=== PATIENT | male | born 1945 | race Caucasian/White ===

== ENCOUNTER → 2016-09-27 | Outpatient (CLI) | payer MEDICARE, OTHER ==
[~2016-09-27] MED LIST: AMLO-356 PO; ASPI325T4 PO; BUDE6HFA INHALATION; DULO60CA59 PO; ESOM40CA PO; IOHEXOL 100 ML ONE; ISOS30TA5 PO; MELO-110 PO; MEMA14CA PO; RANO10002 PO; ROSU40TA35 PO; SITA25TA3 PO; SOD CHLORIDE 0.9% 100 ML ONE
--- NOTE | 2016-09-27 17:22 | RADRPT ---
PROCEDURE: CT Pulmonary Angiogram. CLINICAL INDICATION: Chest pain and shortness of breath. TECHNIQUE: CT pulmonary angiogram and a CT scan of the chest with contrast was performed. The pat ient was scanned following the uncomplicated intravenous administration of 90 cc of Omnipaque-350 in travenous contrast. 2-D coronal reformatted images were obtained from the axial source images. In addition, 3-D post processing was performed. Total exam DLP is 510.33 mGy-cm. CTDIvol is 84.50 mGy . One or more of the following dose reduction techniques were used: Automated exposure control, adj ustment of the mA and/or kV according to patient size, use of iterative reconstruction technique. COMPARISON: None available. FINDINGS: The pulmonary arteries are normal with no filling defect or lack of enhancement to suggest pulmonary artery embolism. Mild emphysematous changes are present in the upper lung zones with small subpleural blebs. The neela gs are otherwise clear. There is no pulmonary airspace or interstitial disease. There is a 0.4 cm nodule in the right middle lobe laterally. There is no other pulmonary nodule or mass lesion. There is no pneumothorax. There is no mediastinal or hilar lymphadenopathy or mass. There is no pleural effusion. There is no pericardial effusion. The thoracic aorta is normal with no aneurysm or dissection. There are sternal wires and mediastinal clips from previous surgery of the ascending aorta. The upper ascending aorta is mildly dilated me asuring 4.5 cm. The aortic root measures 3.7 cm in diameter. The heart is enlarged. There is mild coronary artery calcification. Images through the upper abdomen demonstrate normal visualized portions of the liver, spleen, and ad renals. There are degenerative changes of the spine. There is no fracture or lytic lesion. IMPRESSION: 1. Normal CT pulmonary angiogram with no evidence of pulmonary artery embolism. 2. Subpleural blebs in the upper lung zones consistent with emphysema. 3. Benign 0.4 cm nodule in the right middle lobe laterally. No further evaluation required. 4. Prior ascending aorta surgery. 5. Cardiomegaly and mild coronary artery calcification. 6. Degenerative changes of the spine. RPTAT: QQ .Lauro Pat MD, MD Date Time Electronically viewed and signed by .Lauro Pat MD, on 09/27/2016 17:21 .R/
== END | disposition home or self-care (01) ==
LOC: C/S 09:26
PROVIDERS: ATTEND Internal Medicine
DX: I71.9 Aortic aneurysm of unspecified site, without rupture (principal)
CPT/HCPCS: 71275; Q9967

== ENCOUNTER → 2017-03-28 | Outpatient (CLI) | payer MEDICARE, OTHER ==
[~2017-03-28] MED LIST changes: +IODIXANOL LOCM 100 ML BTL ONE; -IOHEXOL 100 ML ONE
--- NOTE | 2017-03-28 12:13 | RADRPT ---
PROCEDURE: CTA Chest. CLINICAL INDICATION: Chest pain TECHNIQUE: The study was performed utilizing a multidetector CT scanner. Direct spiral 1 mm axial sections were obtained from the thoracic inlet to the upper abdomen with the use of 100 cc of Visipa que 320 nonionic intravenous contrast material and reformatted at 3 mm. Coronal and sagittal reforma tions were obtained. 3-D reconstructions were also obtained. The images were reviewed on a PACS wor kstation. One or more of the following dose reduction techniques were used: - Automated exposure control. - Adjustment of the mA and/or kV according to patient size. Use of iterative reconstruction technique. DLP 791.6 mGycm CTDIvol 47.9 and 17.1 mGy COMPARISON: 09/27/2016 FINDINGS: There is suboptimal opacification of the pulmonary arteries which slightly limits the examination wi th no visible filling defects. Aortic and coronary artery atherosclerotic plaque and calcification a re present with no evidence of dissection. Surgical changes are seen from prior sternotomy and from aortic root repair. 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 Diffuse atherosclerotic plaque is seen with m ultifocal areas of plaque ulceration. There is stable enlarged appearance of the brachial cephalic a rtery on the right side up to 2.6 cm and the dimension. 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 The heart is at the upper limits of normal in size. There is no lung consolidation, pleural effusion, or pneumothorax. Emphysema is seen with areas of subpleural scarring. There is a stable 4 mm pulmonary nodule in the right middle lobe on series 4, i mage 75 with no new nodules. Previously seen lower lung ground-glass opacities have since resolved. The airways are patent. There is a stable borderline enlarged precarinal lymph node that measures up to 14 mm in the short a xis. There are no new enlarged lymph nodes present within the thorax. There is no acute upper abdominal abnormality. Layering stones are seen in the gallbladder without v isible inflammation. There is a fecal filled colon. Degenerative changes are seen in the lumbar spin e with no evidence of acute osseous abnormality. IMPRESSION: No CT evidence for pulmonary embolus. There is slight suboptimal opacification of the pulmonary lizzeth nella. There is no aortic dissection. Extensive atherosclerotic changes are seen. 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 There is aneurysmal enlargement of the brachiocephalic trunk and which is stable with dolichoectasia of the upper thoracic arteries overall which appears stable. Emphysema and subpleural scarring with otherwise no acute pulmonary process. Stable 4 mm likely benign pulmonary nodule right middle lobe. Surgical changes of sternotomy. Borderline enlarged precarinal lymph node is stable from prior study. This can be reassessed with a followup CT after 1 year. Cholelithiasis. RPTAT: AA .Juan Paris MD, Date Time Electronically viewed and signed by .Juan Paris MD, on 03/28/2017 12:12 .J/
== END | disposition home or self-care (01) ==
LOC: C/S 10:37
PROVIDERS: ATTEND Internal Medicine Interventional Cardiology
DX: I71.9 Aortic aneurysm of unspecified site, without rupture (principal)
CPT/HCPCS: 71275; Q9967

== ENCOUNTER 2017-07-03 12:34 | Emergency (ER) | payer MEDICARE, OTHER ==
[~2017-07-03] VITALS: Wt 100.0 kg
[~2017-07-03 12:34] MED LIST changes: -IODIXANOL LOCM 100 ML BTL ONE; -MELO-110 PO; +MELO-210 PO; -SOD CHLORIDE 0.9% 100 ML ONE
--- NOTE | 2017-07-03 12:42 | ERD ---
ER Documentation Chief Complaint Chief Complaint Unable to void HPI The patient is a 71-year-old male, presenting to the ER because he has not been able to void well for the last 3 day, associated with dysuria. He denies similar symptoms previously, denies fever, chills, neck pain, chest pain, dyspnea, abdominal pain, vomiting, dysuria. He smokes, denies drinking Past medical history: CAD, diabetes mellitus, hypertension, dyslipidemia Surgical history: AAA ROS All systems reviewed and are negative except as per history of present illness. Medications Home Meds Active Scripts Tamsulosin Hcl* (Flomax*) 0.4 Mg Cap.er.24h, 0.4 MG PO QPM, #30 CAP Prov:GARRET LAL MD 07/03/17 Reported Medications Ranolazine* (Ranexa*) 1,000 Mg Tab.sr.12h, 1000 MG PO BID, TAB 01/28/16 Esomeprazole Mag Trihydrate (Nexium) 40 Mg Capsule.dr, 40 MG PO DAILY, #30 CAP 01/28/16 Budesonide-Formoterol Fumarate* (Symbicort*) 160-4.5 Hfa.aer.ad, 2 PUFF INHALATION BID, #1 EACH 01/28/16 Amlodipine/Valsartan (Amlodipine-Valsartan 10-320 mg) 1 Each Tablet, 1 TAB PO DAILY, #30 TAB 01/28/16 Aspirin* (Aspirin*) 325 Mg Tablet, 325 MG PO DAILY, TAB 05/03/15 Isosorbide Mononitrate* (Isosorbide Mononitrate*) 30 Mg Tab.er.24h, 30 MG PO DAILY, TAB 05/03/15 Memantine* (Namenda* XR) 14 Mg Cap.spr.24, 14 MG PO DAILY, TAB 05/03/15 Meloxicam* (Mobic*) 15 Mg Tablet, 15 MG PO DAILY, TAB 05/03/15 Sitagliptin* (Januvia*) 25 Mg Tablet, 25 MG PO DAILY, TAB 05/03/15 Duloxetine Hcl* (Duloxetine Hcl*) 60 Mg Capsule.dr, 60 MG PO DAILY, CAP 05/03/15 Rosuvastatin Calcium* (Crestor*) 40 Mg Tablet, 40 MG PO HS, TAB 05/03/15 Allergies Allergies: Coded Allergies: No Known Drug Allergy (Verified Allergy, Unknown, 01/28/16) PMhx/Soc History of Surgery: Yes (cabg) Anesthesia Reaction: No Hx Neurological Disorder: No Hx Respiratory Disorders: No Hx Cardiac Disorders: Yes (HTN) Hx Psychiatric Problems: No Hx Miscellaneous Medical Probl: No Hx Alcohol Use: No Hx Substance Use: No Hx Tobacco Use: Yes Physical Exam Vitals Vital Signs Date Time Temp Pulse Resp B/P Pulse Ox O2 Delivery O2 Flow Rate FiO2 07/03/17 17:02 98.8 81 17 124/65 99 Room Air 07/03/17 15:20 74 20 131/66 99 Room Air 07/03/17 12:40 98.1 78 20 119/56 98 Physical Exam Const: No acute distress. Head: Atraumatic. Eyes: Normal Conjunctiva. ENT: Normal External Ears, Nose and Mouth. Neck: Full range of motion. No meningismus. Resp: Clear to auscultation bilaterally. Cardio: Regular rate and rhythm. Abd: Soft, distended urinary bladder, normal bowel sounds, non tender. Skin: No petechiae or rashes. Back: No midline or flank tenderness. Ext: No cyanosis, or edema. Neur: Awake and alert. No focal deficit Psych: Normal Mood and Affect. Result Diagram: 07/03/17 1325 07/03/17 1325 Results 24 hrs Laboratory Tests Test 07/03/17 13:11 07/03/17 13:25 Bedside Urine pH (LAB) 6.0 Bedside Urine Protein (LAB) 1+ Bedside Urine Glucose (UA) Negative Bedside Urine Ketones (LAB) Negative Bedside Urine Blood Trace-lysed Bedside Urine Nitrite (LAB) Negative Bedside Urine Leukocyte Esterase (L Negative White Blood Count 9.610^3/ul Red Blood Count 5.0710^6/ul Hemoglobin 14.6g/dl Hematocrit 42.8% Mean Corpuscular Volume 84.4fl Mean Corpuscular Hemoglobin 28.8pg Mean Corpuscular Hemoglobin Concent 34.1g/dl Red Cell Distribution Width 13.4% Platelet Count 50393^3/UL Mean Platelet Volume 10.4fl Neutrophils % 72.4% Lymphocytes % 17.2% Monocytes % 9.4% Eosinophils % 0.4% Basophils % 0.3% Nucleated Red Blood Cells % 0.0/100WBC Neutrophils # 6.910^3/ul Lymphocytes # 1.710^3/ul Monocytes # 0.910^3/ul Eosinophils # 0.010^3/ul Basophils # 0.010^3/ul Nucleated Red Blood Cells # 0.010^3/ul Sodium Level 142mmol/L Potassium Level 4.2mmol/L Chloride Level 103mmol/L Carbon Dioxide Level 28mmol/L Anion Gap 15 Blood Urea Nitrogen 14mg/dl Creatinine 0.93mg/dl Glucose Level 106mg/dl Calcium Level 9.3mg/dl Total Bilirubin 0.7mg/dl Direct Bilirubin 0.00mg/dl Indirect Bilirubin 0.7mg/dl Aspartate Amino Transf (AST/SGOT) 22IU/L Alanine Aminotransferase (ALT/SGPT) 46IU/L Alkaline Phosphatase 77IU/L Total Protein 7.7g/dl Albumin 4.0g/dl Globulin 3.70g/dl Albumin/Globulin Ratio 1.08 Lipase 28U/L Procedures/MDM MEDICAL MAKING DECISION: The patient is a 71-year-old male, presenting with acute urinary retention. He was treated with a Lovell catheter drain about 550 mL of urine with spontaneous relief The differential diagnoses considered include but are not limited to UTI, prostatitis, BPH, genitourinary tract abnormality Departure Diagnosis: Primary Impression: Retention of urine Condition: Good Comments He was discharge with Flomax I discussed the findings with the patient. I advised the patient to follow-up with the Urologist Deepthi in about 1-2 days, sooner if needed and return if any concern. Disclaimer: Inadvertent spelling and grammatical errors are likely due to EHR/ dictation software use and do not reflect on the overall quality of patient care. Also, please note that the electronic time recorded on this note does not necessarily reflect the actual time of the patient encounter. GARRET LAL MD Jul 03, 2017 12:42
[2017-07-03 13:12] LABS: URINE BLOOD (Dip) POC Trace-lysed (NEGATIVE)
[2017-07-03 13:44] LABS: BASOPHILS % 0.3 % (0.0-2.0); EOSINOPHILS % 0.4 % (0.0-7.0); HEMATOCRIT 42.8 % (42.0-52.0); HEMOGLOBIN 14.6 g/dl (14.0-18.0); LYMPHOCYTES # 1.7 10^3/ul (0.8-2.9); LYMPHOCYTES % 17.2 % (15.0-51.0); MEAN CORPUSCULAR HEMOGLOBIN 28.8 pg (29.0-33.0); MEAN CORPUSCULAR HGB CONC 34.1 g/dl (32.0-37.0); MEAN CORPUSCULAR VOLUME 84.4 fl (82.0-101.0); MEAN PLATELET VOLUME 10.4 fl (7.4-10.4); MONOCYTE # 0.9 10^3/ul (0.3-0.9); MONOCYTES % 9.4 % (0.0-11.0); NEUTROPHIL # 6.9 10^3/ul (1.6-7.5); NEUTROPHILS % 72.4 % (39.0-77.0); PLATELET COUNT 180 10^3/UL (140-415); RED BLOOD COUNT 5.07 10^6/ul (4.70-6.10); RED CELL DISTRIBUTION WIDTH 13.4 % (11.5-14.5); WHITE BLOOD COUNT 9.6 10^3/ul (4.8-10.8)
[2017-07-03 14:22] LABS: ALBUMIN/GLOBULIN RATIO 1.08; BILIRUBIN,INDIRECT 0.7 mg/dl (0-1.1); BILIRUBIN,TOTAL 0.7 mg/dl (0.2-1.3); CALCIUM 9.3 mg/dl (8.4-10.2); CREATININE 0.93 mg/dl (0.61-1.24); POTASSIUM 4.2 mmol/L (3.5-5.1); TOTAL PROTEIN 7.7 g/dl (6.1-8.1)
[2017-07-03] MEDS ORDERED: TAMS-14 PO (16:50)
[2017-07-03 17:02] VITALS: BP 124/65; PULSE 81; RESP 17; TEMP 98.8
== END 2017-07-03 17:06 | disposition home or self-care (01) ==
LOC: E/R 12:34
DX: R33.9 Retention of urine, unspecified (principal); I10 Essential (primary) hypertension; E11.9 Type 2 diabetes mellitus without complications; I25.10 Atherosclerotic heart disease of native coronary artery without angina pectoris; Z79.82 Long term (current) use of aspirin; Z79.84 Long term (current) use of oral hypoglycemic drugs; Z87.891 Personal history of nicotine dependence
CPT/HCPCS: 80053; 81003; 83690; 85025

== ENCOUNTER → 2018-02-14 | Outpatient (CLI) | END | disposition home or self-care (01) ==

== ENCOUNTER → 2019-03-19 | Outpatient (CLI) | payer MEDICARE, OTHER ==
[~2019-03-19] MED LIST changes: +ASPI325T30 PO; -ASPI325T4 PO; +IOHEXOL 100 ML ONE; -ISOS30TA5 PO; +ISOS30TA67 PO; -MELO-210 PO; +MELO15TA30 PO; +SOD CHLORIDE 0.9% 100 ML ONE; +TAMS-14 PO
== END | disposition home or self-care (01) ==
LOC: C/S 12:28
PROVIDERS: ATTEND Clinical Nurse Specialist Adult Health
DX: I71.2 Thoracic aortic aneurysm, without rupture (principal)
CPT/HCPCS: 71275; Q9967